=== PATIENT | female | born 1980 | race Hispanic/Latino ===

== ENCOUNTER 2022-10-21 17:47 | Emergency (ER) | payer MEDICAID, SELFPAY ==
--- NOTE | ~2022-10-21 | CT_ITS ---
EXAMINATION: CT abdomen pelvis w con DATE: 10/21/2022 20:25 INDICATION: Left lower quadrant abdominal tenderness and left flank pain TECHNIQUE: Computed tomography (CT) of the abdomen and pelvis was performed with 100 mL Omnipaque-350 intravenous contrast. Automated exposure control and iterative reconstruction technique were employe d. The dose-length product was 374.89 mGy-cm. COMPARISON: 06/04/2018 FINDINGS: Mild dependent atelectasis in the bilateral lower lobes. Heart size is normal. No pericardial or pleu ral effusion. The gallbladder is decompressed around multiple large rim calcified gallstones. No wall thickening or pericholecystic inflammatory stranding to suggest acute cholecystitis. Liver, spleen, pancreas, bilateral adrenal glands and kidneys are normal. Bowels including appendix are normal. Blad jairo is normal. 2.8 cm left adnexal cyst. The anteverted uterus and right adnexa are unremarkable. No free intraperitoneal gas or fluid. No pathologically enlarged abdominal or pelvic lymphadenopathy. Glynn miguel are unremarkable. IMPRESSION: 1. Cholelithiasis. 2. 2.8 cm left adnexal cyst. Reviewed, dictated and finalized at location A. ING TEACHER
[2022-10-21 17:50] VITALS: BP 150/98; PULSE 79; RESP 14; TEMP 36.4; O2SAT 100
--- NOTE | 2022-10-21 19:28 | ED.ABDPAIN ---
HPI - Abdominal Pain General Chief Complaint: Abdominal Pain Stated Complaint: abd pain Time Seen by Provider: 10/21/22 18:53 History of Present Illness HPI narrative: 42-year-old female here for evaluation of left lower quadrant abdominal pain. Patient states the pain is been going on for about a week and is described as cramping in nature. She also notes the pain is in her left flank. Has been taking ibuprofen for pain but this is not helping. She denies any nausea, vomiting, diarrhea, constipation, fevers, chills, dysuria urgency or frequency. No history of previous similar pain. Related Data Allergies Allergy/AdvReac Type Severity Reaction Status Date / Time Penicillins Allergy Unknown Unknown Unverified 10/21/22 19:35 Review of Systems Review of Systems: Gen: Denies fevers or chills Eyes: Denies eye pain or visual change ENT: Denies congestion Respiratory: Denies shortness of breath or cough CV: Denies chest pain or palpitations GI: Reports abdominal pain. Denies nausea, emesis or diarrhea : denies burning, urgency, frequency or hematuria Musculoskeletal: Denies back pain or muscle pain Neuro: Denies numbness, tingling, weakness or focal weakness Skin: Denies rash Except as documented, all other systems reviewed and negative Exam Narrative: APPEARANCE: Well appearing, no pain in distress, well-nourished. Head: Normocephalic and atraumatic. EYES: PERRLA/EOMI, conjunctivae clear NOSE: No nasal drainage EARS: External ear normal in appearance THROAT: Oropharynx is clear. Mucous membranes are moist. NECK: Supple. No adenopathy, no masses. RESPIRATORY: Airway patent, respirations nonlabored. Clear to auscultation bilaterally, no rales, rhonchi, wheezing. CARDIOVASCULAR: Regular rate and rhythm without murmurs, rubs, or gallops. ABDOMINAL: Tender to palpation in left lower quadrant. Normoactive bowel sounds. Soft, nondistended. No rebound tenderness or guarding. MUSCULOSKELETAL: Extremities are warm and well-perfused. Moves all extremities well. No edema. NEURO: Normal speech. No focal neurologic deficits. SKIN: Skin is warm and dry. No rashes. PSYCHIATRIC: Normal affect/mood. Course Vital Signs Vital signs: Vital Signs Temperature 97.6 F 10/21/22 17:50 Pulse Rate 79 10/21/22 17:50 Respiratory Rate 14 10/21/22 17:50 Blood Pressure 150/98 H 10/21/22 17:50 Pulse Oximetry 100 10/21/22 17:50 Oxygen Delivery Room Air 10/21/22 17:50 Temperature 97.6 F 10/21/22 17:50 Pulse Rate 72 10/21/22 22:01 Respiratory Rate 16 10/21/22 22:01 Blood Pressure 117/70 10/21/22 22:01 Pulse Oximetry 100 10/21/22 22:01 Oxygen Delivery Room Air 10/21/22 17:50 MDM - Abdominal Pain MDM Narrative Medical decision making narrative: 42-year-old female here for evaluation of left lower quadrant abdominal pain over the past several days, no associated symptoms. She is nontoxic-appearing and has normal vital signs, is tender to palpation in the left lower quadrant. Her basic labs are unremarkable. Urine without signs of infection. CT abdomen pelvis shows cholelithiasis and a adnexal ovarian cyst. Patient was pain-free after pain medicine in the ED. doubt ovarian torsion. Advised patient to follow-up with her RN ICU this following week for further evaluation and management. Return precautions discussed and she voiced understanding. Lab Data 10/21/22 19:44 10/21/22 19:44 Labs: Lab Results 10/21/22 10/21/22 10/21/22 Range/Units 19:44 19:44 19:51 WBC 9.3 (4.5-10.0) K/mm3 RBC 3.76 L (4.2-5.4) M/mm3 Hgb 11.2 L (12.0-15.0) g/dL Hct 34.2 L (37.0-47.0) % MCV 91.0 (80-100) fl MCH 29.8 (26-34) pg MCHC 32.7 (32-36) g/dl RDW 13.5 (11.5-14.5) % Plt Count 383 H (150-375) k/mm3 MPV 10.2 (7.4-10.4) fl Immature Gran % (Auto) 0.2 (0-0.5) % Neut % (Auto) 48.9 (45.5-73.1) % Lymph % (Auto) 41.9 (18.3-44.2) % Mo
[2022-10-21 19:49] LABS: Basophils Percent Auto 0.4 % (0.2-1.2); Eosinophils Absolute Auto 0.2 K/mm3 (0-0.3); Eosinophils Percent Auto 1.9 % (0-4.4); Hematocrit 34.2 % (37.0-47.0); Hemoglobin 11.2 g/dL (12.0-15.0); Immature Granulocyte Absolute 0.02 K/mm3 (0.00-0.031); Immature Granulocyte Percent A 0.2 % (0-0.5); Lymphocytes Absolute Auto 3.89 K/mm3 (0.9-3.2); Lymphocytes Percent Auto 41.9 % (18.3-44.2); Mean Corpuscular HGB Conc 32.7 g/dl (32-36); Mean Corpuscular Hemoglobin 29.8 pg (26-34); Mean Platelet Volume 10.2 fl (7.4-10.4); Monocytes Absolute Auto 0.6 K/mm3 (0.1-0.6); Monocytes Percent Auto 6.7 % (2.6-8.5); Neutrophils Absolute Auto 4.5 K/mm3 (1.3-6.7); Neutrophils Percent Auto 48.9 % (45.5-73.1); Platelet Count Result 383 k/mm3 (150-375); Red Blood Count 3.76 M/mm3 (4.2-5.4); Red Cell Distribution Width 13.5 % (11.5-14.5); White Blood Count 9.3 K/mm3 (4.5-10.0)
[2022-10-21 19:59] LABS: Appearance Urine Clear (Clear); Bilirubin Urine Negative (Negative); Blood Urine Trace-intact (Negative); Color Urine Yellow (Yellow); Glucose Urine UA Negative (Negative); Ketones Urine Negative (Negative); Leukocyte Esterase Ur Negative LEU/UL (Negative); Nitrate Urine Negative (Negative); Protein Urine Negative (Negative); Specific Grav Ur 1.015 (1.001-1.035); Urobilinogen Urine 0.2 mg/dL (<2.0); pH Urine 7.5 (5.0-9.0)
[2022-10-21 20:00] LABS: Alanine Aminotransferase 18 U/L (6-35); Albumin Level 4.4 g/dL (3.5-5.1); Alkaline Phosphatase 61 U/L (38-126); Anion Gap 5 mmol/L (8-16); Aspartate Amino Transferase 21 U/L (14-36); Bilirubin,Total 0.2 mg/dL (0.2-1.3); Blood Urea Nitrogen 10 mg/dL (7-17); Calcium 8.8 mg/dL (8.4-10.2); Carbon Dioxide 27 mmol/L (22-30); Chloride 108 mmol/L (98-107); Estimated Glomerular Filt Rate > 60; Glucose 98 mg/dL (65-110); Lipase 77 U/L (23-300); Potassium 4.2 mmol/L (3.4-5.0); Sodium 140 mmol/L (137-145)
[2022-10-21 20:05] LABS: Bacteria Urine Trace /hpf; RBC Urine 0-2 /hpf (0-2); Squamous Epithelial Cell Urine Rare /hpf (Few); WBC Urine 0-3 /hpf
[2022-10-21 20:07] LABS: Add Urine Microscopic? YES
[2022-10-21] MEDS: MORPHINE SULFATE (*CRX) 4 MG/ML INJ IV PUSH (20:52)
[2022-10-21 22:01] VITALS: BP 117/70; PULSE 72; RESP 16; O2SAT 100
== END 2022-10-21 22:14 | disposition home or self-care (01) ==
PROVIDERS: General Practice; Emergency Provider Physician Assistant
DX: N83.202 Unspecified ovarian cyst, left side (principal); K80.20 Calculus of gallbladder without cholecystitis without obstruction
CPT/HCPCS: 36415; 74177; 80053; 81001; 81025; 83690; 85025; 96374; 99284; J2270; Q9967

== ENCOUNTER 2023-01-06 20:13 | Emergency (ER) | payer SELFPAY ==
--- NOTE | ~2023-01-06 | CT_ITS ---
EXAMINATION: CT abdomen pelvis w con DATE: 01/07/2023 01:50 INDICATION: Left abdominal pain. Nausea and vomiting. TECHNIQUE: Computed tomography (CT) of the abdomen and pelvis was performed with 100 mL Omnipaque 350 intravenous contrast. Automated exposure control and iterative reconstruction technique were employe d. The dose-length product was 330.74 mGy-cm. COMPARISON: CT abdomen and pelvis 10/21/22 FINDINGS: The visualized portions of the lung bases demonstrate mild atelectasis. No pleural effusion . The heart size is normal. No pericardial effusion. The liver and spleen are normal. There are galls tones in the gallbladder, which is distended. The pancreas, adrenal glands, and kidneys are normal. T here are no dilated loops of bowel. The appendix measures 8 mm in diameter, which is chronic. There a re no pathologically enlarged lymph nodes. There is no free intraperitoneal fluid. There is mild lumb ar spondylosis. IMPRESSION: 1. Cholelithiasis. Gallbladder distention may be secondary to fasting or acute cholecystitis. Correla te with physical exam. Reviewed, dictated and finalized at location D. IMPRESSION: 1. Cholelithiasis. Gallbladder distention may be secondary to fasting or acute cholecystitis. Correlate with physical exam.
[2023-01-06 21:08] VITALS: BP 137/91; PULSE 74; RESP 16; TEMP 36.6; O2SAT 100
[2023-01-06 23:23] VITALS: BP 117/78; PULSE 73; RESP 16; TEMP 36.6; O2SAT 100
[2023-01-06 23:43] LABS: Basophils Percent Auto 0.2 % (0.2-1.2); Eosinophils Absolute Auto 0.1 K/mm3 (0-0.3); Eosinophils Percent Auto 0.6 % (0-4.4); Hematocrit 34.8 % (37.0-47.0); Hemoglobin 11.6 g/dL (12.0-15.0); Immature Granulocyte Absolute 0.04 K/mm3 (0.00-0.031); Immature Granulocyte Percent A 0.3 % (0-0.5); Immature Platelet Fraction Pct 6.1 % (0.9-11.2); Lymphocytes Absolute Auto 4.13 K/mm3 (0.9-3.2); Lymphocytes Percent Auto 33.9 % (18.3-44.2); Mean Corpuscular HGB Conc 33.3 g/dl (32-36); Mean Corpuscular Hemoglobin 30.1 pg (26-34); Mean Corpuscular Volume 90.4 fl (80-100); Mean Platelet Volume 10.3 fl (7.4-10.4); Monocytes Absolute Auto 0.6 K/mm3 (0.1-0.6); Monocytes Percent Auto 5.3 % (2.6-8.5); Neutrophils Absolute Auto 7.3 K/mm3 (1.3-6.7); Neutrophils Percent Auto 59.7 % (45.5-73.1); Platelet Count Result 395 k/mm3 (150-375); Red Blood Count 3.85 M/mm3 (4.2-5.4); Red Cell Distribution Width 13.1 % (11.5-14.5); White Blood Count 12.2 K/mm3 (4.5-10.0)
[2023-01-07 00:01] LABS: Alanine Aminotransferase 39 U/L (6-35); Albumin Level 4.7 g/dL (3.5-5.1); Alkaline Phosphatase 77 U/L (38-126); Anion Gap 5 mmol/L (8-16); Aspartate Amino Transferase 35 U/L (14-36); Bilirubin,Total 0.4 mg/dL (0.2-1.3); Blood Urea Nitrogen 10 mg/dL (7-17); Calcium 9.4 mg/dL (8.4-10.2); Carbon Dioxide 29 mmol/L (22-30); Chloride 105 mmol/L (98-107); Estimated CRCL calculation 111 ml/min; Estimated Glomerular Filt Rate > 60; Glucose 102 mg/dL (65-110); Lipase 76 U/L (23-300); Potassium 3.7 mmol/L (3.4-5.0); Sodium 139 mmol/L (137-145)
[2023-01-07 00:22] LABS: Appearance Urine Clear (Clear); Bilirubin Urine Negative (Negative); Blood Urine Negative (Negative); Color Urine Yellow (Yellow); Glucose Urine UA Negative (Negative); Ketones Urine Negative (Negative); Leukocyte Esterase Ur Negative LEU/UL (Negative); Nitrate Urine Negative (Negative); Protein Urine Negative (Negative); Specific Grav Ur 1.016 (1.001-1.035); Urobilinogen Urine 0.2 mg/dL (<2.0); pH Urine 6.5 (5.0-9.0)
[2023-01-07] MEDS: SODIUM CHLORIDE 0.9% IV 1,000 ML 999 ML IV CONT (00:41)
[2023-01-07] MEDS: ONDANSETRON INJ 4 MG/2 ML VIAL IV PUSH (00:41)
[2023-01-07] MEDS: MORPHINE SULFATE (*CRX) 4 MG/ML INJ IV PUSH (00:45)
[2023-01-07 00:52] LABS: Add Urine Microscopic? NO
[2023-01-07 01:13] VITALS: BP 108/76; PULSE 67; RESP 17; O2SAT 100
[2023-01-07 02:43] VITALS: BP 96/80; PULSE 73; RESP 17
--- NOTE | 2023-01-07 02:54 | ED.GENADULT ---
HPI - General Adult General Chief complaint: Abdominal Pain Stated complaint: Left sided abd pain Time Seen by Provider: 01/07/23 00:23 History of Present Illness HPI narrative: Patient 42-year-old female who presents the emergency department with chief complaint of left-sided abdominal pain. The patient reports that she has been having pain in the left side of her abdomen and has been seen in the emergency department back in October and was told that it was possibly an ovarian cyst. The patient reports that she was followed up by [facility] and was told that this was most likely not the cause. Patient reports that the pain is not improved by anything and reports it is not worsened by anything. Related Data Allergies Allergy/AdvReac Type Severity Reaction Status Date / Time Penicillins Allergy Unknown Unknown Unverified 10/21/22 19:35 Review of Systems Review of Systems: A 10 system review of systems was completed on the patient and is negative except for what is stated in the HPI. Nursing and ancillary documentation was reviewed. Exam Narrative: GENERAL: Well-appearing, well-nourished, and in no acute distress. HEAD: Normocephalic, atraumatic. EYES: PERRLA and EOMI. ENT: Nares clear, no rhinorrhea or epistaxis. Mucous membranes moist. NECK: Supple. CHEST: Clear to auscultation. No respiratory distress. HEART: Regular rate and rhythm. No murmur heard. Normal peripheral pulses. ABDOMEN: Soft, tenderness to palpation of the left upper and left lower quadrant, nondistended, normal active bowel sounds. EXTREMITIES: Normal range of motion. No edema. SKIN: Warm, dry, no rash. NEURO: No focal deficits. Alert and oriented x3. PSYCH: Normal mood and affect. Course Vital Signs Vital signs: Vital Signs Temperature 36.6 C 01/06/23 21:08 Pulse Rate 74 01/06/23 21:08 Respiratory Rate 16 01/06/23 21:08 Blood Pressure 137/91 H 01/06/23 21:08 Pulse Oximetry 100 01/06/23 21:08 Oxygen Delivery Room Air 01/06/23 21:08 Temperature 36.6 C 01/06/23 23:23 Pulse Rate 73 01/07/23 02:43 Respiratory Rate 17 01/07/23 02:43 Blood Pressure 96/80 L 01/07/23 02:43 Pulse Oximetry 100 01/07/23 01:13 Oxygen Delivery Room Air 01/06/23 21:08 Medical Decision Making MDM Narrative Medical decision making narrative: Differential diagnosis includes biliary colic, cholecystitis, ovarian cyst, colitis, diverticulitis Laboratory studies were obtained which showed a white count of 12.2 electrolytes were obtained which showed a normal kidney function LFTs were obtained AST was 35 bilirubin is 0.4 and ALT was 39 alk phos was 77 lipase was 76 urinalysis showed a negative test and negative for UTI. CT scan of the abdomen pelvis showed a gallbladder half-full of stones distended but no biliary dilatation and no secondary signs of acute cholecystitis. There is no evidence of hydronephrosis no evidence of small bowel obstruction there was a involuted right ovarian follicle. The patient's pain was controlled in the emergency department the patient will be instructed to start a low-fat diet and follow-up with surgery as this could be secondary to biliary colic. Vital Signs Vital Signs: Vital Signs Temperature 36.6 C 01/06/23 21:08 Pulse Rate 74 01/06/23 21:08 Respiratory Rate 16 01/06/23 21:08 Blood Pressure 137/91 H 01/06/23 21:08 Pulse Oximetry 100 01/06/23 21:08 Oxygen Delivery Room Air 01/06/23 21:08 Temperature 36.6 C 01/06/23 23:23 Pulse Rate 73 01/07/23 02:43 Respiratory Rate 17 01/07/23 02:43 Blood Pressure 96/80 L 01/07/23 02:43 Pulse Oximetry 100 01/07/23 01:13 Oxygen Delivery Room Air 01/06/23 21:08 Lab Data 01/06/23 23:28 01/06/23 23:28 Labs: Lab Results 01/06/23 01/06/23 01/06/23 Range/Units 23:28 23:28 23:53 WBC 12.2 H (4.5-10.0) K/mm3 RBC 3.85 L (4.2-5.4) M/mm3 Hgb 11.6 L (12.0-15.0) g/dL Hc
== END 2023-01-07 03:27 | disposition home or self-care (01) ==
PROVIDERS: Emergency Provider Emergency Medicine
DX: K80.20 Calculus of gallbladder without cholecystitis without obstruction (principal); R10.84 Generalized abdominal pain
CPT/HCPCS: 36415; 74177; 80053; 81003; 81025; 83690; 85025; 85055; 96361; 96374; 96375; 99284; J2270; J2405; J7030; Q9967

== ENCOUNTER 2023-01-18 13:59 | Emergency (ER) | payer SELFPAY ==
--- NOTE | ~2023-01-18 | XR_ITS ---
EXAMINATION: XR abdomen obstructive series DATE: 01/18/2023 16:50 INDICATION: Left-sided abdominal pain TECHNIQUE: Upright and supine views of the abdomen were obtained. COMPARISON: CT, 01/07/2023 FINDINGS: The bowel gas pattern is normal. The lung bases are clear. Calcifications projecting in the right mid abdomen are consistent with cholelithiasis seen on the comparison CT. IMPRESSION: 1. Cholelithiasis. Reviewed, dictated and finalized at location F. IMPRESSION: 1. Cholelithiasis.
[2023-01-18 14:03] VITALS: BP 139/94; PULSE 77; RESP 16; TEMP 36.6; O2SAT 100
[2023-01-18 14:33] LABS: Basophils Percent Auto 0.4 % (0.2-1.2); Eosinophils Absolute Auto 0.1 K/mm3 (0-0.3); Eosinophils Percent Auto 0.4 % (0-4.4); Hematocrit 40.2 % (37.0-47.0); Hemoglobin 13.1 g/dL (12.0-15.0); Immature Granulocyte Absolute 0.02 K/mm3 (0.00-0.031); Immature Granulocyte Percent A 0.2 % (0-0.5); Immature Platelet Fraction Pct 7.2 % (0.9-11.2); Lymphocytes Absolute Auto 3.82 K/mm3 (0.9-3.2); Lymphocytes Percent Auto 34.3 % (18.3-44.2); Mean Corpuscular HGB Conc 32.6 g/dl (32-36); Mean Corpuscular Hemoglobin 30.1 pg (26-34); Mean Corpuscular Volume 92.4 fl (80-100); Mean Platelet Volume 10.7 fl (7.4-10.4); Monocytes Absolute Auto 0.6 K/mm3 (0.1-0.6); Monocytes Percent Auto 5.4 % (2.6-8.5); Neutrophils Absolute Auto 6.6 K/mm3 (1.3-6.7); Neutrophils Percent Auto 59.3 % (45.5-73.1); Platelet Count Result 466 k/mm3 (150-375); Red Blood Count 4.35 M/mm3 (4.2-5.4); Red Cell Distribution Width 13.2 % (11.5-14.5); White Blood Count 11.1 K/mm3 (4.5-10.0)
[2023-01-18 14:39] LABS: Alanine Aminotransferase 31 U/L (6-35); Albumin Level 4.8 g/dL (3.5-5.1); Alkaline Phosphatase 70 U/L (38-126); Anion Gap 10 mmol/L (8-16); Aspartate Amino Transferase 30 U/L (14-36); Bilirubin,Total 0.4 mg/dL (0.2-1.3); Blood Urea Nitrogen 6 mg/dL (7-17); Calcium 9.2 mg/dL (8.4-10.2); Carbon Dioxide 25 mmol/L (22-30); Chloride 104 mmol/L (98-107); Estimated CRCL calculation 124 ml/min; Estimated Glomerular Filt Rate > 60; Glucose 105 mg/dL (65-110); Lipase 105 U/L (23-300); Potassium 3.9 mmol/L (3.4-5.0); Sodium 139 mmol/L (137-145)
[2023-01-18 14:49] LABS: Appearance Urine Clear (Clear); Bacteria Urine None Seen /hpf; Bilirubin Urine Negative (Negative); Blood Urine 3+ (Negative); Color Urine Yellow (Yellow); Glucose Urine UA Negative (Negative); Ketones Urine Negative (Negative); Leukocyte Esterase Ur Trace LEU/UL (Negative); Need Manual Microscopic Reviewed; Nitrate Urine Negative (Negative); Non Pathogenic Casts 0-2; Protein Urine Negative (Negative); RBC Urine 21-50 /hpf (0-2); Specific Grav Ur 1.004 (1.001-1.035); Squamous Epithelial Cell Urine Few /hpf (Few); Urobilinogen Urine 0.2 mg/dL (<2.0); WBC Urine 0-5 /hpf; pH Urine 7.5 (5.0-9.0)
[2023-01-18 14:50] LABS: Add Urine Microscopic? YES
--- NOTE | 2023-01-18 15:50 | ED.ABDPAIN ---
HPI - Abdominal Pain General Chief Complaint: Abdominal Pain Stated Complaint: abd pain Time Seen by Provider: 01/18/23 15:50 Source: patient and family Mode of arrival: ambulatory Limitations: no limitations History of Present Illness HPI narrative: Patient is 42 years old female came to the emergency room with left-sided abdominal pain started 4 weeks last months, patient has been to our emergency room at least 3 times in the last 3 weeks, been to different hospital, scheduled to see the surgeon next week. She denies any difference of the pain today compared to the past. She denies any fever, chills, nausea, vomiting. Related Data Allergies Allergy/AdvReac Type Severity Reaction Status Date / Time Penicillins Allergy Unknown Unknown Verified 01/18/23 16:05 Review of Systems Review of Systems: All systems reviewed & are unremarkable except as noted in HPI and below Exam Narrative: General appearance: Well-developed, well-nourished Skin: Normal color Head: Normocephalic, nontraumatic Eyes: Clear conjunctiva ENT: Oropharynx normal, ears normal, nose normal Neck: Supple, nontender Chest and respiratory: Airway patent, no respiratory distress, no accessory muscle use Heart: Regular rate/rhythm Abdomen: Mild tenderness epigastric and right upper quadrant, left lower quadrant, quiet bowel sounds Vascular: Normal peripheral pulses, normal capillary refill. 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 Patient scheduled to see the surgeon for gallbladder issues next week. Patient denies any difference between her abdominal pain today and in the last few weeks. Patient declined repeat CAT scan today. Physical exam showed mild diffuse tenderness left abdomen, mild diffuse tenderness epigastric and right upper quadrant, positive Solis sign. Differential diagnosis includes diverticulitis, constipation, urinary tract infection, pancreatitis, cholecystitis, gastritis or esophagitis. Work-up today showed no significant abnormality of the blood work-up today compared to January 06 and October 21, 2019 Obstructive series showed cholelithiasis. Patient feels okay to go home. My plan to discharge patient on Bentyl and Tylenol as needed to follow-up with the surgeon next week. Differential Diagnosis Differential diagnosis: Likely abdominal pain, constipation and diverticulitis Lab Data 01/18/23 14:19 01/18/23 14:19 Labs: Lab Results 01/18/23 01/18/23 01/18/23 Range/Units 14:19 14:19 14:19 WBC 11.1 H (4.5-10.0) K/mm3 RBC 4.35 (4.2-5.4) M/mm3 Hgb 13.1 (12.0-15.0) g/dL Hct 40.2 (37.0-47.0) % MCV 92.4 (80-100) fl MCH 30.1 (26-34) pg MCHC 32.6 (32-36) g/dl RDW 13.2 (11.5-14.5) % Plt Count 466 H (150-375) k/mm3 MPV 10.7 H (7.4-10.4) fl Immature Gran % (Auto) 0.2 (0-0.5) % Neut % (Auto) 59.3 (45.5-73.1) % Lymph % (Auto) 34.3 (18.3-44.2) % [place] % (Auto) 5.4 (2.6-8.5) % Eos % (Auto) 0.
[2023-01-18] MEDS: SODIUM CHLORIDE 0.9% IV 1,000 ML 999 ML IV CONT (16:05)
[2023-01-18] MEDS: HYDROmorphone HCL INJ (*CRX) 1 MG/ML SYR 0.5 MG IV PUSH (16:06)
[2023-01-18] MEDS: ONDANSETRON INJ 4 MG/2 ML VIAL IV PUSH (16:06)
[2023-01-18] MEDS: DICYCLOMINE HCL INJ 20 MG/2 ML VIAL IM (16:53)
[2023-01-18 16:55] VITALS: BP 110/71; PULSE 71; RESP 18; O2SAT 100
== END 2023-01-18 18:04 | disposition home or self-care (01) ==
PROVIDERS: Emergency Provider Emergency Medicine
DX: K80.20 Calculus of gallbladder without cholecystitis without obstruction (principal)
CPT/HCPCS: 36415; 74019; 80053; 81001; 81025; 83690; 85025; 85055; 96361; 96372; 96374; 96375; 99284; J0500; J1170; J2405; J7030

== ENCOUNTER 2023-11-19 17:50 | Emergency (ER) | payer SELFPAY ==
[2023-11-19] VITALS (12 sets, daily range): BP systolic 113–146; BP diastolic 73–101; PULSE 75–90; RESP 16–32; TEMP 36.6; O2SAT 99–100
--- NOTE | ~2023-11-19 | XR_ITS ---
EXAMINATION: XR chest 1V portable DATE: 11/19/2023 21:52 INDICATION: Upper respiratory tract infection TECHNIQUE: frontal view of the chest was obtained. COMPARISON: None FINDINGS: The lungs are clear with no focal airspace opacities, pulmonary edema, pleural effusion or pneumothor ax. The cardiomediastinal silhouette is normal. Cholecystectomy clips in right upper quadrant. IMPRESSION: 1. No acute cardiopulmonary disease. Reviewed, dictated and finalized at location A. STRIAL ENGINEERING ANALYST
--- NOTE | 2023-11-19 21:26 | ECG_ITS ---
Measurements Intervals [place] Rate: 69 P: 53 KS: 157 QRS: 1 QRSD: 84 T: 18 QT: 376 QTc: 404 Interpretive Statements SINUS RHYTHM POSSIBLE LEFT ATRIAL ENLARGEMENT [-0.1mV P WAVE IN V1/V2] POSSIBLE RIGHT VENTRICULAR CONDUCTION DELAY [RSR (QR) IN V1/V2] BORDERLINE ECG NO PREVIOUS ECG AVAILABLE FOR COMPARISON Electronically Signed On 11-20-2023 11:45:25 [employer]PERVISOR TELE[employer]ION [employer]ASS[employer] REPAIR by Mikie Calderon M.D.
[2023-11-19 23:28] LABS: Basophils Percent Auto 0.2 % (0.2-1.2); Eosinophils Absolute Auto 0.1 K/mm3 (0-0.3); Eosinophils Percent Auto 0.6 % (0-4.4); Hematocrit 33.1 % (37.0-47.0); Hemoglobin 11.1 g/dL (12.0-15.0); Immature Granulocyte Absolute 0.07 K/mm3 (0.00-0.031); Immature Granulocyte Percent A 0.4 % (0-0.5); Lymphocytes Absolute Auto 3.49 K/mm3 (0.9-3.2); Mean Corpuscular HGB Conc 33.5 g/dl (32-36); Mean Corpuscular Hemoglobin 29.7 pg (26-34); Mean Corpuscular Volume 88.5 fl (80-100); Mean Platelet Volume 9.9 fl (7.4-10.4); Monocytes Absolute Auto 0.8 K/mm3 (0.1-0.6); Monocytes Percent Auto 5.1 % (2.6-8.5); Neutrophils Absolute Auto 12.1 K/mm3 (1.3-6.7); Neutrophils Percent Auto 72.7 % (45.5-73.1); Platelet Count Result 351 k/mm3 (150-375); Red Blood Count 3.74 M/mm3 (4.2-5.4); Red Cell Distribution Width 13.2 % (11.5-14.5); White Blood Count 16.6 K/mm3 (4.5-10.0)
[2023-11-19 23:38] LABS: Alanine Aminotransferase 20 U/L (6-35); Albumin Level 4.3 g/dL (3.5-5.1); Alkaline Phosphatase 68 U/L (38-126); Anion Gap 7 mmol/L (8-16); Aspartate Amino Transferase 23 U/L (14-36); Bilirubin,Total 0.6 mg/dL (0.2-1.3); Blood Urea Nitrogen 5 mg/dL (7-17); Calcium 9.4 mg/dL (8.4-10.2); Carbon Dioxide 24 mmol/L (22-30); Chloride 107 mmol/L (98-107); Estimated CRCL calculation 110 ml/min; Estimated Glomerular Filt Rate > 60; Glucose 100 mg/dL (65-110); Potassium 3.6 mmol/L (3.4-5.0); Sodium 138 mmol/L (137-145)
[2023-11-19] MEDS: guaiFENesin/DEXTROMETHORPHAN 10 ML UDC PO (23:39)
[2023-11-19] MEDS: ACETAMINOPHEN 500 MG TABLET 1000 MG PO (23:39)
[2023-11-19] MEDS: dexAMETHasone SOD PHOS INJ 10 MG/ML 1 ML VIAL IV PUSH (23:40)
[2023-11-19] MEDS: KETOROLAC 15 MG/ML VIAL (*BKC) IM (23:40)
[2023-11-20] VITALS (11 sets, daily range): BP systolic 97–131; BP diastolic 63–87; PULSE 73–94; RESP 14–25; O2SAT 99–100
[2023-11-20 00:12] LABS: Strep Group A RT-PCR NOT DETECTED (Negative)
[2023-11-20 00:23] LABS: Influenza A QL RT-PCR Negative (Negative); Influenza B QL RT-PCR Negative (Negative); RSV RNA, RT-PCR Negative (Negative); SARS-CoV-2 RNA PCR Negative (Negative)
[2023-11-20 01:30] LABS: SPREG INTERNAL CONTROL Positive; Serum Qual hCG Negative
--- NOTE | 2023-11-20 01:33 | ED.GENADULT ---
HPI - General Adult General Chief complaint: Upper Respiratory Infection Stated complaint: bronchial pain Time Seen by Provider: 11/19/23 21:43 History of Present Illness HPI narrative: Thai speaker. 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 Patient was diagnosed with viral illness about 10 days ago. She noted that she had been improving until 2 days ago when she started to get worse. She is now having worsening chest pain and shortness of breath. Patient had been taking Motrin but stopped taking it due to GI discomfort. patient denies fevers chills nausea vomiting or diarrhea. Patient had a productive cough. Related Data Home Medications Medication Instructions Recorded Confirmed acetaminophen 500 mg tablet 500 mg PO Q6H PRN 01/21/23 01/24/23 (Tylenol Extra Strength) Allergies Allergy/AdvReac Type Severity Reaction Status Date / Time Penicillins Allergy Unknown Rash Verified 01/21/23 10:03 [facility] Family History Family History Father Stomach cancer Social History Social History Smoking status: Never smoker Alcohol intake: never Living arrangements: with family Occupation/Education: unemployed Exam Narrative: APPEARANCE: No apparent distress. Head: atraumatic. EYES: EOMI, NOSE: Atraumatic NECK: Trachea midline RESPIRATORY: tachypneic, coarse lung sounds CARDIOVASCULAR: RRR, ABDOMINAL: Non-distended MUSCULOSKELETAl: No obvious deformities NEURO: Alert. Moving 4/4 extremities SKIN:: Warm, dry. Normal color PSYCHIATRIC: Normal affect Course Vital Signs Vital signs: Vital Signs Temperature 97.9 F 11/19/23 17:55 Pulse Rate 90 11/19/23 17:55 Respiratory Rate 20 11/19/23 17:55 Blood Pressure 146/101 H 11/19/23 17:55 Pulse Oximetry 100 11/19/23 17:55 Oxygen Delivery Room Air 11/19/23 17:55 Temperature 97.9 F 11/19/23 17:55 Pulse Rate 82 11/20/23 02:00 Respiratory Rate 14 11/20/23 02:00 Blood Pressure 100/73 11/20/23 02:00 Pulse Oximetry 100 11/20/23 02:00 Oxygen Delivery Room Air 11/19/23 21:32 Medical Decision Making MDM Narrative Medical decision making narrative: -Course: 43-year-old female presenting with 2 weeks of URI symptoms have gotten worse over last 2 days. White count elevated. Patient will be treated for secondary pneumonia. patient reports a penicillin allergy as a child. PEN-FAST score 0. Given Augmentin doxycycline emergency department and monitored With no reaction. VSS stable. Well appearing. Patient will be discharged. -DDX includes but is not limited to: Bronchitis, pleurisy, secondary pneumonia, viral syndrome -Co-morbidities complicating care: Thai-speaking -Social determinants of health: patient works in a [employer] restaurant, lives with her , denies drugs or alcohol -Independent interpretation of studies: white count 16. Metabolic panel normal. Viral swabs and strep negative. Chest x-ray negative. Chest x-rays are insensitive for pneumonia. Independent EKG interpretation: Rhythm [sinus], Rate [69], [place] -[normal], [place] -[normal], QRS [narrow], QTC [normal], T waves -[negative for concerning inversions], ST Segments - [Negative for concerning elevations] Final interpretations: [Normal Sinus Rhythm] -Interventions: Toradol, Tylenol, Augmentin, doxycycline, dexamethasone Robitussin -Shared decision making / Disposition: discharge -RX Augmentin, doxycycline, Tylenol, Vital Signs Vital Signs: Vital Signs Temperature 97.9 F 11/19/23 17:55 Pulse Rate 90 11/19/23 17:55 Respiratory Rate 20 11/19/23 17:55 Blood Pressure 146/101 H 11/19/23 17:55 Pulse Oximetry 100 11/19/23 17:55 Oxygen Delivery Room Air 11/19/23 17:55 Temperature 97.9 F 11/19/23 17:55 Pulse Rate 8
[2023-11-20] MEDS: AMOXICILLIN/CLAVULANATE K 875-125 MG TAB 1 TABLET PO (02:03)
[2023-11-20] MEDS: DOXYCYCLINE HYCLATE 100 MG TABLET PO (02:03)
--- NOTE | 2023-11-20 02:41 | PC.NURSE ---
No c/o rash or itching after med. Ok to discharge.
== END 2023-11-20 02:50 | disposition home or self-care (01) ==
PROVIDERS: Emergency Provider Emergency Medicine
DX: J18.9 Pneumonia, unspecified organism (principal); Z20.822 Contact with and (suspected) exposure to COVID-19
CPT/HCPCS: 36415; 71045; 80053; 84703; 85025; 87637; 87651; 93005; 96372; 96374; 99284; A9270; J1100; J1885